=== PATIENT | male | born 1970 | race Hispanic/Latino ===

== ENCOUNTER 2025-01-20 12:23 | Emergency (ER) | payer BC ==
[~2025-01-20] VITALS: Ht 172.7 cm; Wt 93.0 kg
[2025-01-20] MEDS ORDERED: DEXTROSE 50%-WATER 50 ML DISP.SYRIN IV ONE ×2 (12:24→13:09)
[2025-01-20] MEDS ORDERED: MAGNESIUM SULFATE 1 GM/2 ML VIAL IM ONE (12:24)
[2025-01-20] MEDS ORDERED: SODIUM BICARB 8.4% 50ML SYRINGE IVP ONE (12:24)
[2025-01-20] MEDS ORDERED: ATROPINE 1MG SYG IVP ONE (12:24)
[2025-01-20] MEDS ORDERED: CACL 1GM SYG IVP ONE (12:24)
--- NOTE | 2025-01-20 12:55 | NUR ---
PATIENT ARRIVED PULSLESS AND APNEIC WITH CPR IN PROGRESS BY EMS TEAM. PATIENT RECEIVED AND PLACED IN ER07. RESCUSCITATION CONTINUED IN ER07. REFER TO CODE SHEET.
--- NOTE | 2025-01-20 13:17 | EKG ---
[facility] Test Date: 2025-01-20 Test Time: 12:30:08 Pat Name: BREANNA FREY Department: [facility] Room: Gender: M Orthopedic Designer: [id number] : 1970 Requested By: JENY YOUNG Order Number: [id number] Reading MD: Sebastian Lopez Measurements Intervals [place] Rate: 94 P: 10 MI: 147 QRS: 62 QRSD: 148 T: 235 QT: 407 QTc: 514 Interpretive Statements Sinus rhythm Nonspecific intraventricular conduction delay Repol abnrm, severe global ischemia (LM/MVD) No previous ECG available for comparison Electronically Signed On 01-21-2025 21:12:05 FOOT ROENTGENOLOGIST by Sebastian Lopez Please click the below link to view image of tracing.
[2025-01-20 13:18] VITALS: BP 177/14; PULSE 0; RESP 0; TEMP 94.5; O2SAT 78
--- NOTE | 2025-01-20 13:27 | NUR ---
CALLED MICHAEL AT 1323, SPOKE TO RAJ, STATES SOMEONE MAY CALL BEFORE 4 PM BECAUSE EYES MAY BE POSSIBLE FOR DONATION.
--- NOTE | 2025-01-20 13:55 | HMCIMG ---
Comparison: Findings: There are infiltrates noted in the bilateral perihilar areas. NG tube is in the stomach. There is a right IJ line in the SVC. The heart is enlarged. There are no acute fractures or pneumothorax. There is no effusion noted Impression: Bilateral perihilar infiltrates are noted /[place]
--- NOTE | 2025-01-20 13:59 | ERN ---
General Chief Complaint: CPR/Full Arrest Stated Complaint: CPR Time Seen by MD: 12:57 Source: patient, EMS History of Present Illness Initial Comments Patient is a 54-year-old gentleman brought in by EMS in cardiac arrest. Per EMS patient was intubated via ambulance ride to hospital. Patient has been down for about 15 minutes prior to arrival. Multiple doses of epinephrine were given patient still remained in asystole Allergies: Coded Allergies: No Known Drug Allergies (Unverified Allergy, Unknown, 01/20/25) Past Medical History Past Medical History: Unknown Past Surgical History: Unknown ROS Dictation Unable to perform due to patient being in asystole Physical Exam Physical Exam Dictation Patient intubated Results Laboratory and Microbiology Labs Reviewed?: Yes MDM MDM: Differential diagnosis: Cardiac arrest, , endotracheal intubation, Rationale: Tests considered and ordered secondary to shared decision making include: Previous outside records reviewed: Old ER visits. Risk of complication and/or morbidity or mortality of patient management: None Medications-Per medication reconciliation Need for hospitalization: Patient does meet criteria for hospitalization. Need for emergency major/minor surgery: No There are no social concerns with this patient. Prescription drug management Prescriptions will include symptomatic care Patient's prior external medical records from other ER visits were reviewed by me as indicated. Prior testing and results from previous visits were reviewed. Prior tests were taken into account with medical decision making and resource utilization, independent historian/historians were used to obtain complete medical history. I independently interpreted the test that were performed, results were reviewed by me and considered findings on radiology if ordered. Medical management and examination interpretation discussions were had by me with other qualified healthcare professionals as indicated for the patient's care. ED Course Orders Procedure Category Date Status Time Chest 1vw RAD 01/20/25 Resulted 12:57 12 Lead Ekg Tracing- EKG 01/20/25 Complete Technical 12:57 Dextrose 50%-Water PHA 01/20/25 Complete (D50w) 13:09 Current Medications Medications (Trade) Dose Ordered Sig/Stefano Route PRN Reason Start Time Stop Time Status Last Admin Dose Admin Dextrose (D50w) 50 ml STK-MED ONCE IV 01/20/25 13:09 01/20/25 13:09 DC Vital Signs Date Time Temp Pulse Resp B/P (MAP) Pulse Ox O2 Delivery O2 Flow Rate FiO2 01/20/25 13:18 94.5 0 0 177/14 78 Ventilator+ 21 01/20/25 13:12 94.5 89 22 106/52 93 Ventilator+ 21 01/20/25 13:04 94.5 0 0 0/0 0 Ventilator+ 0 01/20/25 12:49 94.5 81 0 86/46 0 Ventilator+ 0 01/20/25 12:38 94.5 102 0 123/65 0 Ventilator+ 0 01/20/25 12:33 94.5 139 0 241/107 0 Ventilator+ 0 DX & DISP Disposition: Decision to Admit Time: 13:58 Departure Impression: Primary Impression: Cardiac arrest Condition: JENY YOUNG MD Jan 20, 2025 13:59
== END 2025-01-20 13:18 ==
LOC: EDH 12:23
DX: I46.9 Cardiac arrest, cause unspecified (principal)
CPT/HCPCS: 99285; 92950; 31500; 71045; 82948 ×3; 93005; J7070 ×2; J0169; J3475; J0461; J3490 ×2